=== PATIENT | female | born 1995 | race Caucasian/White ===

== ENCOUNTER 2018-12-29 08:37 | Outpatient (CLI) | payer BC ==
--- NOTE | 2018-12-29 11:13 | MRI ---
MRI BRAIN WITH AND WITHOUT CONTRAST: 12/29/2018 HISTORY: Headaches. COMPARISON: None. TECHNIQUE: Multiplanar, multisequence MR imaging of the brain is provided with and without contrast. FINDINGS: The diffusion weighted imaging demonstrates no evidence for acute infarction. The axial gradient echo imaging demonstrates no evidence for intracranial hemorrhage. The imaged paranasal sinuses and mastoid air cells are unremarkable. Arterial flow voids at the axial level of the skull base appear grossly unremarkable on the T2 weight ed imaging. There is no midline shift or mass effect. No ventricular enlargement is noted. Regional bone marrow signal intensity appears grossly unremarkable. The post contrast imaging is unre markable. IMPRESSION: Unremarkable contrast enhanced brain MRI. POS: [facility]
== END 2018-12-29 08:38 | disposition home or self-care (01) ==
LOC: SCSMRI 08:37
DX: R51 Headache (principal)
CPT/HCPCS: 70553